=== PATIENT | male | born 1955 | race Caucasian/White ===

== ENCOUNTER 2019-02-23 11:33 | Emergency (ER) | payer MEDICAID, OTHER ==
[~2019-02-23] VITALS: Ht 170.2 cm; Wt 83.9 kg
[2019-02-23 11:40] VITALS: BP 154/77
[2019-02-23] MEDS ORDERED: KETOROLAC TROMETHAMINE INJ 60 MG/2 ML VIAL IM ONE (11:53)
[2019-02-23] MEDS: KETOROLAC TROMETHAMINE INJ 60 MG/2 ML VIAL IM ONE (12:00)
== END 2019-02-23 13:32 | disposition home or self-care (01) ==
LOC: ER 11:33
DX: M54.5 Low back pain (principal); G89.29 Other chronic pain; E11.9 Type 2 diabetes mellitus without complications; E78.00 Pure hypercholesterolemia, unspecified
CPT/HCPCS: 72110; 96372; 99283; J1885

== ENCOUNTER 2020-05-05 22:15 | Emergency (ER) | payer OTHER ==
[~2020-05-05] VITALS: Ht 170.2 cm; Wt 83.9 kg
--- NOTE | 2020-05-05 22:18 | NUR ---
PT AAOX4. BIB EMS C/O LOW BACK PAIN. PER EMS PT WAS ASSISTED FROM THE FLOOR UNABLE TO WALK. PER DAUGHTER PT HAS BEEN HAVING PAIN X10 DAYS BUT FELL TODAY DUE TO UNBERABLE PAIN. -KO. NO SKIN ISSUES NOTED. VSS. AWAITING MD FOR EVAL.
[2020-05-05] MEDS ORDERED: CARISOPRODOL 350 MG TABLET ONE (22:40)
[2020-05-05] MEDS ORDERED: DEXAMETHASONE SOD PHOSPHATE 10 MG/ML VIAL ONE (22:40)
[2020-05-05] MEDS ORDERED: HYDROMORPHONE 1 MG/1 ML DISP.SYRIN ONE (22:41)
--- NOTE | 2020-05-05 22:56 | NUR ---
AWAITING FAMILY TO SPECIAL SERVICES DIRECTOR PATIENT.
[2020-05-05] MEDS ORDERED: DEXAMETHASONE SOD PHOSPHATE 4 MG/ML VIAL IM ONE (23:00)
[2020-05-05] MEDS ORDERED: HYDROMORPHONE 1 MG/1 ML DISP.SYRIN IM ONE (23:00)
[2020-05-05] MEDS ORDERED: CARISOPRODOL 350 MG TABLET PO ONE (23:00)
[2020-05-05 23:21] VITALS: BP 148/79
--- NOTE | 2020-05-05 23:21 | NUR ---
Patient discharged to home in stable condition. Written and verbal after care instructions given. Patient verbalizes understanding of instruction and RX. Pt wheeled to car. RX explained to daughter.
== END 2020-05-05 23:22 | disposition home or self-care (01) ==
LOC: ER 22:15
DX: M54.42 Lumbago with sciatica, left side (principal); E11.9 Type 2 diabetes mellitus without complications
CPT/HCPCS: 96372 ×2; 99284; J1100; J1170